=== PATIENT | female | born 1995 | race Caucasian/White ===

== ENCOUNTER 2016-07-04 15:00 | Inpatient (IN) | payer BC ==
--- NOTE | ~2016-07-04 | PN ---
Unit #: [id number] #: [id number] Patient: PHILLIP ARDON [id number] [facility] [address] [place] [address] [id number] MR#: [id number] NAME: PHILLIP ARDON ROOM: [facility] Age: 20 Sex: F Admission Date: 07/04/2016 : 1995 Attending Physician: Idris Schilling M.D. Admitting Physician: Glenna Andrade PROGRESS NOTES DATE OF SERVICE: 07/05/2016 DISCUSSION Ms. Ardon is a 20-year-old white female, who was seen today and chart was reviewed and case was discussed with the staff. She has been anxious, withdrawn, depressed, and seclusive to himself with blunted affect with minimal interaction. Meanwhile, he has not shown any agitation or aggression, and has been taking medications and tolerating them fairly well. MENTAL STATUS EXAMINATION Duglas white female, who was casually dressed with fair personal hygiene, appears to be in no acute distress or discomfort. He was awake and alert on interaction with intact orientation. His mood was anxious with congruent affect. He denies any suicidal or homicidal ideations, and also denies any auditory or visual hallucinations. His insight and judgment remain slightly impaired. TREATMENT PLAN 1. We will continue on his current medications and treatment protocol. We will monitor his response to medications and make further adjustments as needed. 2. We will continue to follow up. Dictated by... Glenna Andrade/dean TD: 07/06/2016 06:24 JOB #: [id number] [facility] PROGRESS NOTES X Idris Schilling MD PROGRESS NOTE
--- NOTE | ~2016-07-04 | PA ---
Unit #: [id number] #: [id number] Patient: PHILLIP ARDON [id number] [facility] [address] [place] [address] [id number] MR#: [id number] NAME: PHILLIP ARDON ROOM: [facility]181 Age: 20 Sex: F Admission Date: 07/04/2016 : 1995 Date of Assessment: 07/04/2016 Attending Physician: Idris Schilling M.D. Admitting Physician: Idris Schilling M.D. PSYCHIATRIC ASSESSMENT DATE OF SERVICE 07/04/2016. IDENTIFYING DATA Ms. Ardon is a 20-year-old single white female, who is a resident of [place], [place], and was transferred to us from Emergency Psychiatric Services at [facility] where she was brought in by crisis intervention team of the [facility] [employer]. CHIEF COMPLAINT "I took a Klonopin." HISTORY OF PRESENT ILLNESS Ms. Ardon is a 20-year-old white female, who was brought to the hospital by crisis intervention team, who states that the patient was holding a gun to her head and boyfriend had to wrestle with her to get it out of her hand and boyfriend called the police, and upon arrival, the patient had a blank stare and reported that she sees a psychiatrist weekly and is on medication and reports that she had been drinking alcohol and reports that she woke up from nap and boyfriend was mad at her and she went to look through his phone to see if he saw something in her phone and she stated that we were still both drunk from the night before and I had a little bit of coke and she said that she is prescribed Xanax, but did not have any with her, so "I took a Klonopin." She stated that she is active with outpatient psychiatric services and had been experiencing suicidal ideation in the past and typically when she is arguing with her boyfriend and on occasions, she has grabbed the loaded gun, but has never held it to her head. She stated that she has never attempted and last night she did want to and so she grabbed the loaded gun. She identifies stressors as her relationship with boyfriend and that he is moving to [place] in the next couple of weeks and she stated that she would not act on it because of family and friends, but was unable to identify a plan on how she would keep herself safe, and minimize the concerns and safety issues as she wants to be discharged from the hospital and stated "I did not have my finger on the trigger." She stated that she thinks she had 5 to 6 shots last night, but is not sure and has only done cocaine a few times and she does not believe that she was trying to minimize her presentation and was not trying to take responsibility for her behavior, however, did not feel safe the patient being discharged and therefore she was transferred to us. SUBSTANCE ABUSE HISTORY The patient reports history of experimentation with alcohol, cocaine, and Unit #: [id number] #: [id number] Patient: YOUNG,PHILLIP cannabis and currently, alcohol appears to be her substance of choice. PAST PSYCHIATRIC HISTORY The patient has had a history of psychiatric treatment through [facility] chemical dependency treatment, and currently, she is seeing Dr. Ramirez through [facility] and has been getting prescriptions of Xanax as well as Prozac. PAST MEDICAL HISTORY No acute or chronic medical illnesses. ALLERGIES No known medication allergies. PERSONAL AND SOCIAL HISTORY A 20-year-old white female, who reports that she lives at home with her boyfriend and has fairly decent social support system. MENTAL STATUS EXAMINATION Young white female, who was casually dressed with fair personal hygiene, appears to be in no acute distress or discomfort. She was awake and alert on interaction with intact orientation to time, place, and person. Her mood was anxious and depressed with a congruent affect. Her speech was slow and goal directed. She reports having suicidal ideations, but denies any homicidal ideations and also denies any auditory or visual hallucinations. Her insight and judgment remain significantly impaired. DIAGNOSTIC IMPRESSION Psychiatric: Major depressive disorder, recurrent, moderate, without psychotic features; alcohol abuse, moderate; and cocaine abuse, mild. Medical: None. Stressors: Moderate psychosocial stressors. TREATMENT PLAN 1. The patient has presented with a history of substance abuse and mood disorder and has been decompensating. We will recommend inpatient hospitalization for safety and stabilization. We will start her back on her home medications and we will adjust the medications and monitor response. 2. Supportive therapy was provided to the patient. ESTIMATED LENGTH OF STAY 4 to 5 days. ABILITY TO HELP SELF Limited. WILLINGNESS TO HELP SELF The patient appears to be willing to help self. STRENGTHS 1. Communicative. 2. Cooperative. PROBLEMS 1. Chronic dysphoric symptoms. 2. Poor social support system. DISCHARGE CRITERIA Unit #: [id number] #: [id number] Patient: YOUNGMYESHAY This will be contingent upon the patient's ability to go through detox without having any significant withdrawal symptoms and her ability to stay safe to herself, particularly after discharge from the hospital. Dictated by... Idris Schilling M.D. KARIE/dean TD: 07/05/2016 15:48 JOB #: [id number] PSYCHIATRIC ASSESSMENT X Idris Schilling MD X PSYCHIATRIC ASSESSMENT
--- NOTE | ~2016-07-04 | PN ---
Unit #: [id number] #: [id number] Patient: PHILLIP ARDON [id number] [facility] [address] [place] [address] [id number] MR#: [id number] NAME: PHILLIP ARDON ROOM: [facility] Age: 20 Sex: F Admission Date: 07/04/2016 : 1995 Attending Physician: Idris Schilling M.D. Admitting Physician: Glenna Andrade PROGRESS NOTES DATE OF SERVICE: 07/08/2016 SUBJECTIVE Ms. Ardon is a 20-year-old white female, who was seen today and chart was reviewed and the case was discussed with the staff. She appears to be doing much better and has been calm and cooperative with the treatment recommendations as she has been taking the medications and tolerating them fairly well. MENTAL STATUS EXAMINATION Duglas white female, who was casually dressed with fair personal hygiene, appears to be in no acute distress or discomfort. She was awake and alert on interaction with intact orientation. Her mood was anxious with a congruent affect. She denies any suicidal or homicidal ideations and also denies any auditory or visual hallucinations. Her insight and judgment remain slightly impaired. TREATMENT PLAN 1. We will continue her on her current medications and treatment protocol. We will monitor her response to the medications and make further adjustments as needed. 2. We will continue to follow up. Dictated by... Glenna Andrade/dean TD: 07/09/2016 10:21 JOB #: [id number] [facility] NOTES X Idris Schillign MD PROGRESS NOTE
--- NOTE | ~2016-07-04 | A ---
[facility] Nutrition Therapy DATE: 07/06/16 Patient: PHILLIP GREY Physician: AFAIRF Address: [address] [facility] Room/Bed: [address], Zip: [place] [address] Admit Date: 07/04/16 Date of : [birth year] Height: 5 7 Weight: [phone] NUTRITIONAL ASSESSMENT: REASON: Low BMI Admitting Dx: 20 y/o female admitted with SI, depression, drug abuse PMH: smoker, uses cocaine and marijuana, ETOH abuse Anthropometrics: Ht: 67", Wt: 113 lbs, IBW: 135 lbs, 84% IBW, BMI: 17 (underweight) Labs: Reviewed; nothing significant Meds: Mag-Al, Milk of Mg, Tylenol, Desyrel, Prozac I/O & Bowel function: No issues Assessment: Chart reviewed, events noted. Patient works at a [employer] and lives with her boyfriend whom she argues with. She is clinically underweight, no past weights available. She scored 0 points on the malnutrition risk score. Appetite has been good per nursing shift assessments and she is on a regular diet with large portion entrees ordered but not noted in carex. RD added to cardex and will notify [facility] staff to send larger portions. See recs below. Dx: Underweight r/t PSA, depression, dietary habits AEB BMI 17, 84% IBW. Intervention: Large portion entrees Monitoring, Evaluation and Goals: 1. Adequate oral intake > 50% of meals. 2. Gradual weight gain towards a healthy BMI range. Recommendations: 1. Continue regular diet, [facility] staff notified to send large portion entrees with lunch and dinner. Encourage oral intake. 2. If PO intake is < 50% of meals please order Ensure Plus BID (available in vanilla or chocolate, requires MD order). 3. Please weigh q 3 days for monitoring purposes, as the patient is underweight. Please notify RD if weight declines. [facility] Nutrition Therapy DATE: 07/06/16 Patient: PHILLIP GREY Physician: AFAIRF Address: [address] [facility] Room/Bed: [address], Zip: [place] [address] Admit Date: 07/04/16 Date of : [birth year] Height: 5 7 Weight: [phone] Mild nutrition risk Respectfully, Mariajose Menjivar RD, [facility] cc: client file
--- NOTE | ~2016-07-04 | HP ---
Unit #: [id number] #: [id number] Patient: PHILLIP GREY [id number] [place] [address] [id number] MR#: [id number] NAME: PHILLIP GREY ROOM: [facility] Age: 20 Sex: F Admission Date: 07/04/2016 : 1995 Attending Physician: Idris Schilling M.D. Admitting Physician: Idris Schilling M.D. HISTORY AND PHYSICAL HISTORY OF PRESENT ILLNESS The patient is a 20-year-old female admitted to [facility] on 07/04/2016 for suicidal ideations and drug abuse. PAST MEDICAL HISTORY The patient denies. PAST SURGICAL HISTORY The patient denies. SOCIAL HISTORY The patient works at [employer]. She lives with her boyfriend. She smokes cigarettes and her tox screen was positive for marijuana and cocaine. FAMILY MEDICAL HISTORY Noncontributory. ALLERGIES No known drug allergies. CURRENT MEDICATIONS 1. Prozac 2. Xanax REVIEW OF SYSTEMS CONSTITUTIONAL: No fever or chills. HEENT: Denies any sore throat, ear pain or runny nose. CARDIOVASCULAR: Denies chest pain, irregular heart rhythm or palpitations. CHEST: Denies shortness of breath or cough. No hemoptysis. GASTROINTESTINAL: Denies nausea, vomiting, diarrhea or chronic constipation. ENDOCRINE: Denies history of increased thirst or urination. No recent significant weight loss or gain. GENITOURINARY: Denies dysuria, frequency, or hematuria. SKIN: Denies any rashes. HEMATOLOGIC: Denies history of increased bleeding or bruising. MUSCULOSKELETAL: Denies any hot, swollen joints. No generalized muscle pain. NEUROLOGIC: Denies problems with vision or speech. No frequent, severe headaches. No numbness, tingling or weakness in any extremities. Denies loss of bladder or bowel control. Unit #: [id number] #: [id number] Patient: PHILLIP GREY PHYSICAL EXAM GENERAL: She is awake, alert and oriented in no acute distress. VITAL SIGNS: Temperature 98.6, heart rate 99, respiration 16, blood pressure 112/68. HEIGHT: 5'7". WEIGHT: 113 pounds. SKIN: Warm and dry without rash or lesion. HEENT: Normocephalic. TMs not viewed. Oral and nasal passages clear. Conjunctivae clear. PERRLA. EOMs intact. NECK: Supple without lymphadenopathy or thyromegaly. HEART: Regular rate and rhythm without murmur. LUNGS: Clear. ABDOMEN: Soft, nontender. : Not done. EXTREMITIES: No evidence of cyanosis, clubbing or edema. Moves all without focal deficit. NEUROLOGICAL: Grossly within normal limits. Cranial Nerves: II: Visual [place] are intact. III, IV AND : Extraocular movements are intact. Pupils are equal, round and reactive to light. V: Facial sensation is grossly normal. VII: Facial movements and expression are normal. VIII: Auditory acuity grossly intact. IX, X: Uvula is midline. Phonation is normal. XI: Patient shrugs shoulders and turns head normally. XII: Tongue protrudes in the midline. Sensory and Motor Function: Sensory and motor sensation is grossly normal. Motor: moves all extremities well. IMPRESSION 1. Psychiatric admission. 2. Nicotine dependence. 3. Drug abuse. RECOMMENDATIONS Psychiatric per psychiatrist. MEDICAL: No contraindication to participate in facility activities. MEDICAL PROGNOSIS Good. MEDICAL CONDITION Stable. Dictated by... Marla Landeros TD: 07/06/2016 00:36 JOB #: [id number] Unit #: [id number] #: [id number] Patient: YOUNG,PHILLIP HISTORY AND PHYSICAL X KIZZY SAHU APRN HISTORY AND PHYSICAL
--- NOTE | ~2016-07-04 | PN ---
Unit #: [id number] #: [id number] Patient: PHILLIP ARDON [id number] [facility] [address] [place] [address] [id number] MR#: [id number] NAME: PHILLIP ARDON ROOM: [facility] Age: 20 Sex: F Admission Date: 07/04/2016 : 1995 Attending Physician: Idris Schilling M.D. Admitting Physician: Glenna Andrade PROGRESS NOTES DATE OF SERVICE: 07/06/2016 SUBJECTIVE Ms. Ardon is a 20-year-old white female who was seen today and chart was reviewed, and case was discussed with the staff. She has been anxious, withdrawn, and rather seclusive to herself and reports feeling better than yesterday. Meanwhile, she has been taking the medications and tolerating them fairly well with no reported side effects. MENTAL STATUS EXAMINATION Young white female who was casually dressed with fair personal hygiene, and appears to be in no acute distress or discomfort. She was awake and alert on interaction with intact orientation. Her mood was anxious and depressed with a congruent affect. Her speech was slow and goal directed. She denies any suicidal or homicidal ideations. Her insight and judgment remain slightly impaired. TREATMENT PLAN 1. We will continue on her current medications and treatment protocol. We will monitor her response and make further adjustments as needed. 2. We will continue to follow up. Dictated by... Glenna Andrade/dean TD: 07/08/2016 06:32 JOB #: [id number] [facility] PROGRESS NOTES X Idris Schilling MD PROGRESS NOTE
--- NOTE | ~2016-07-04 | DS ---
Unit #: [id number] #: [id number] [facility] [id number] [facility] [address] [place] [address] [id number] MR#: [id number] NAME: PHILLIP ARDON ROOM: [facility] Age: 20 Sex: F Admission Date: 07/04/2016 : 1995 Discharge Date: 07/09/2016 Attending Physician: Idris Schilling M.D. DISCHARGE SUMMARY IDENTIFYING DATA Ms. Ardon is a 20-year-old single white female, who is a resident of [place], [place], and was transferred to us from Emergency Psychiatric Services at [facility]. DISCHARGE DIAGNOSES Psychiatric: Major depressive disorder, recurrent, moderate, without psychotic features; alcohol abuse, mild; cocaine abuse, mild. Medical: None. Stressors: Mild psychosocial stressors. HISTORY OF PRESENT ILLNESS Please see initial psychiatric evaluation for details. PAST PSYCHIATRIC HISTORY Please see initial psychiatric evaluation for details. PAST MEDICAL HISTORY Please see initial psychiatric evaluation for details. HOSPITAL COURSE The patient was admitted to the adult chemical dependency unit at [facility] and was oriented to the hospital environment. Routine p.r.n. medications were initiated, and she was started back on her home medications and medications were adjusted and she was closely monitored. She was taking medications regularly and was tolerating them fairly well and was able to show a decent and therapeutic response and was willing to continue treatment on an outpatient and as such, it was decided that she will be discharged home and will continue treatment on an outpatient basis. DISCHARGE MEDICATIONS Prozac 40 mg a day for depression. DISCHARGE CONDITION Stable. PROGNOSIS Fair. Dictated by... Idris Schilling M.D. IAA/modl Unit #: [id number] #: [id number] Patient: PHILLIP ARDON TD: 07/09/2016 22:56 JOB #: [id number] DISCHARGE SUMMARY X Idris Schilling MD X DISCHARGE SUMMARY
--- NOTE | ~2016-07-04 | PN ---
Unit #: [id number] #: [id number] Patient: PHILLIP ARDON [id number] [facility] [address] [place] [address] [id number] MR#: [id number] NAME: PHILLIP ARDON ROOM: [facility] Age: 20 Sex: F Admission Date: 07/04/2016 : 1995 Attending Physician: Idris Schilling M.D. Admitting Physician: Glenna Andrade PROGRESS NOTES DATE OF SERVICE: 07/07/2016 SUBJECTIVE Ms. Ardon is a 20-year-old white female who was seen today and chart was reviewed, and case was discussed with the staff. She has been anxious, withdrawn, and rather seclusive to herself and has been describing herself to be in some distress and discomfort. Meanwhile, she has been taking the medications and tolerating them fairly well with no reported side effects. MENTAL STATUS EXAMINATION Young white female who was casually dressed with fair personal hygiene, and appears to be in no acute distress or discomfort. She was awake and alert with intact orientation. She denies any suicidal or homicidal ideations. Her insight and judgment remain slightly impaired. TREATMENT PLAN 1. We will continue on her current medications and treatment protocol. We will monitor her response to medications and make further adjustments as needed. 2. We will continue to follow up. Dictated by... Glenna Andrade/dean TD: 07/09/2016 06:48 JOB #: [id number] [facility] NOTES X Idris Schilling MD PROGRESS NOTE
[2016-07-05 12:22] LABS: THYROID STIMULATING HORMONE 1.84 uIU/ml (0.34-5.60)
[2016-07-05 12:29] LABS: FREE THYROXIN (T4) 0.77 ng/dL (0.58-1.64)
[2016-07-06 12:48] LABS: URINE APPEARANCE CLEAR; URINE BILIRUBIN NEG (NEG); URINE BLOOD TRACE (NEG); URINE COLOR YELLOW; URINE GLUCOSE NEG (NEG); URINE KETONE NEG (NEG); URINE LEUKOCYTE ESTERASE NEG (NEG); URINE NITRATE NEG (NEG); URINE PH 6.5 (5-8); URINE PROTEIN NEG (NEG); URINE SPECIFIC GRAVITY 1.007 (1.003-1.035); URINE UROBILINOGEN 0.2 MG/DL (NEG)
[2016-07-06 12:53] LABS: URBCS1 AUWI 0-2 /[HPF] (0-2); URINE BACTERIA AUWI NEG (NEGATIVE); UWBCS1 AUWI 0-2 (0-5)
[2016-07-06 13:12] LABS: URINE SQUAMOUS EPITHELIAL CELL FEW /[HPF]
== END 2016-07-09 09:55 | disposition home or self-care (01) | DRG 885 ==
LOC: P1E 15:00
PROVIDERS: Psychiatry & Neurology Psychiatry
PROC: HZ2ZZZZ Detoxification Services for Substance Abuse Treatment (ICD-10-PCS; principal; 2016-07-04)
DX: F33.1 Major depressive disorder, recurrent, moderate (principal); F14.10 Cocaine abuse, uncomplicated; F10.10 Alcohol abuse, uncomplicated; F17.200 Nicotine dependence, unspecified, uncomplicated
CPT/HCPCS: 81003; 84439; 84443